=== PATIENT | female | born 1980 | race African-American/Black ===

== ENCOUNTER 2021-02-03 18:32 | Emergency (ER) | payer MEDICAID ==
[~2021-02-03] VITALS: Ht 165.1 cm; Wt 59.0 kg
[2021-02-03 18:34] VITALS: BP 144/98
[2021-02-03] MEDS ORDERED: EPIN0.3P3 IM (19:26)
== END 2021-02-03 20:15 | disposition home or self-care (01) ==
LOC: ER 19:03
DX: T63.441A Toxic effect of venom of bees, accidental (unintentional), initial encounter (principal); Z88.9 Allergy status to unspecified drugs, medicaments and biological substances; Y92.9 Unspecified place or not applicable
CPT/HCPCS: 99283